=== PATIENT | male | born 1945 | race Caucasian/White ===

== ENCOUNTER 2016-12-11 22:59 | Emergency (ER) | payer MEDICARE, BC ==
[~2016-12-11 22:59] MED LIST: COUMADIN10 MG PO; FEOSOL325 MG PO; HYDROCODON-ACE1 EAC4 PO; LISINOPRIL10 MG PO; LOVENOX40 MG/0.4 SQ; PREVACID30 MG PO; VITAMIN D2000 UNIT PO
--- NOTE | 2016-12-15 01:36 | ER ---
ADMIT: 12/11/2016 RM/LOC: ER [facility] MR#: [id number] [facility]#: [id number] [id number] [place], [place] [id number] [address] [place] [address] Emergency Room Report SEX: M AGE: 70 : 1945 DATE: 12/11/2016 ADDENDUM: HISTORY OF PRESENT ILLNESS: A 70-year-old male, presents to the ER complaining of bright red blood per rectum. He does have a history of hemorrhoids. 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 He does have frequent bowel movements because of his decrease in colon, says he has 3, 4, or 5 five bowel movements a day which is normal for him. He does admit to spending quite a bit of time sitting on the commode. He notes that tonight he had been on the toilet and when he wiped, he noticed some blood and then had continued bleeding from his hemorrhoids. He does not normally have bleeding from his hemorrhoids. He has not had any other bruising or bleeding from any other mucosa or nosebleeds. His stools have not been black. PHYSICAL EXAMINATION: The patient is not in distress. He has no bruising that can be appreciated. He is not tachycardic. He is initially hypertensive, but he does admit to white-coat syndrome. His abdomen is nontender, active bowel sounds. Examination of the anus reveals he does have external hemorrhoids, which are protruding. There is some blood on the hemorrhoids, but there is no active bleeding. The hemorrhoids were reduced without difficulty. EMERGENCY DEPARTMENT COURSE: I did check some labs and his white count was 12.1 and his hemoglobin is 12.4, and platelets of 141. I also checked CMP, which was unremarkable other than a glucose of 177. His INR was therapeutic. While in the ER, he was given 1000 mg of tranexamic acid and Zofran. He will be discharged home. Given instructions to use half his dose of Coumadin tomorrow and then resume his normal dosing the day after that and ongoing. He is to return to the ER for any concerning bleeding, otherwise follow up with his regular physician. He is also told that he should spend less time if possible sitting on the commode as that will make his hemorrhoids worse. DIAGNOSES: 1. Internal hemorrhoids. 2. Rectal bleeding. Elliott Chan MD/ nahed JOB #: [id number] CC: Elliott Chan MD, Attending Physician
== END 2016-12-12 01:10 | disposition home or self-care (01) ==
LOC: ER 22:59
DX: K64.8 Other hemorrhoids (principal); K62.5 Hemorrhage of anus and rectum; Z90.49 Acquired absence of other specified parts of digestive tract